=== PATIENT | female | born 1945 | race African-American/Black ===

== ENCOUNTER 2017-05-10 16:07 | Inpatient (IN) ==
[2017-05-10] MEDS ORDERED: LACTATED RINGERS 500 ML IV STA (16:16)
[2017-05-10] MEDS ORDERED: ceFAZolin 1,000 MG VIAL ONE (16:19)
[2017-05-10] MEDS ORDERED: DIPH/TET/ACEL PERT BOOSTER VACCINE 0.5 ML VIAL IM ONE (16:20)
[2017-05-10 16:38] LABS: Basophils # 0.1 10*3/uL (0.0-0.2); Basophils % 0.4 % (0.0-0.8); Eosinophils % 0.1 % (0.00-10.9); Hematocrit 38.9 VOL% (35.7-47.0); Hemoglobin 12.6 GM/DL (12.0-16.0); Immature Granulocytes % 1.3 %; Immature Granulocytes Absolute 0.15 #; Lymphocytes # 2.3 10*3/uL (1.4-4.0); Lymphocytes % 20.7 % (21.3-54.2); Mean Corpuscular HGB Conc 32.4 GM/DL (32-36); Mean Corpuscular Hemoglobin 30 PG (27-34); Mean Corpuscular Volume 91.1 FL (87-102); Mean Platelet Volume 11.3 FL (9.6-12.0); Monocytes # 0.5 10*3/uL (0.11-0.8); Monocytes % 4.5 % (1.7-12.7); Neutrophils # 8.1 10*3/uL (1.4-7.4); Platelet Count 301 T/CUMM (130-400); Red Blood Count 4.27 MC/CUMM (3.8-5.5); Red Cell Distribution Width 13.1 % (9.3-17.3); White Blood Count 11.1 T/CUMM (4-12)
[2017-05-10 16:43] LABS: INR 0.9; Partial Thromboplastin Time < 21.0 SECS (0-40)
[2017-05-10 16:51] LABS: Lactic Acid 3.6 MMOL/L (0.4-2.0)
[2017-05-10 16:54] LABS: Alanine Aminotransferase 114 U/L (13-56); Alkaline Phosphatase 76 U/L (45-117); Amylase 87 U/L (25-115); Aspartate Amino Transferase 151 U/L (0-37); Bilirubin,Total < 0.39 MG/DL (0.2-1.0); Blood Urea Nitrogen 24 MG/DL (7-18); Calcium 9.2 MG/DL (8.5-10.1); Glucose 436 MG/DL (74-106); Osmolality,Calculated 292.1 MOS/KG (273-304); Sodium 135 MMOL/L (136-145); Total Protein 8.1 G/DL (6.4-8.3)
[2017-05-10] MEDS ORDERED: INSULIN REGULAR 100 UNIT/ML SUBCUT STA (16:59)
[2017-05-10] MEDS ORDERED: INSULIN REGULAR 100 UNIT/ML ONE (17:27)
[2017-05-10] MEDS ORDERED: LIDOCAINE 1%/EPI INJ 20 ML VIAL ONE (17:31)
[2017-05-10] MEDS ORDERED: ONDANSETRON 4 MG/2 ML VIAL ONE ×2 (17:47→17:48)
[2017-05-10] MEDS: ONDANSETRON 4 MG/2 ML VIAL IV PRN (17:50)
[2017-05-10] MEDS ORDERED: ALBUTEROL/IPRATROPIUM 3 ML NEB RESP TX PRN (18:07)
[2017-05-10] MEDS ORDERED: ACETAMINOPHEN 325 MG TABLET PO PRN (18:07)
[2017-05-10 18:37] LABS: Apearance,Urine CLEAR (Clear); Bacteria,Urine Occasional /HPF (Few); Bilirubin,Urine Negative (Negative); Blood, Urine Negative (Negative); Glucose,Urine (UA) >=500 mg/dL (Negative); Ketones,Urine 5 mg/dL (Negative); Nitrite,Urine Negative (Negative); Protein,Urine Negative; Squamous Epithelial Cell,Urine Occasional /HPF (0-10); Urine Color Yellow (Yellow); Urine Specific Gravity 1.032 (1.001-1.035); Urine Urobilinogen < 2.0 EU/DL (0.2-1.0); WBC,Urine 1 /HPF (0-6)
[2017-05-10 18:59] LABS: Barbiturates Screen,Urine Negative (Negative); Benzodiazepines Screen,Urine Negative (Negative); Cannabinoid Screen,Urine Negative (Negative); Opiate Screen,Urine Negative (Negative); Phencyclidine Screen,Urine Negative (Negative)
[2017-05-10] MEDS: MORPHINE 4 MG/1 ML VIAL IV PRN (19:14)
[2017-05-10] MEDS ORDERED: MORPHINE 4 MG/1 ML VIAL ONE (19:14)
[2017-05-10] MEDS: LACTATED RINGERS 1,000 ML IV SCH (20:34)
[2017-05-10] MEDS: DOCUSATE SODIUM 100 MG CAPSULE PO SCH (20:36)
[2017-05-10 21:12] LABS: Lactic Acid 5.3 MMOL/L (0.4-2.0)
[2017-05-11] MEDS: MORPHINE 4 MG/1 ML VIAL IV PRN ×4 (00:16→19:10)
[2017-05-11 01:11] LABS: Basophils # 0.1 10*3/uL (0.0-0.2); Basophils % 0.3 % (0.0-0.8); Eosinophils % 0.1 % (0.00-10.9); Hematocrit 29.3 VOL% (35.7-47.0); Hemoglobin 9.7 GM/DL (12.0-16.0); Immature Granulocytes % 0.7 %; Immature Granulocytes Absolute 0.11 #; Lymphocytes # 2.1 10*3/uL (1.4-4.0); Lymphocytes % 12.6 % (21.3-54.2); Mean Corpuscular HGB Conc 33.1 GM/DL (32-36); Mean Corpuscular Hemoglobin 30 PG (27-34); Mean Corpuscular Volume 90.4 FL (87-102); Mean Platelet Volume 10.6 FL (9.6-12.0); Monocytes # 1.7 10*3/uL (0.11-0.8); Neutrophils # 12.6 10*3/uL (1.4-7.4); Neutrophils % 76.3 % (38.7-73.9); Platelet Count 256 T/CUMM (130-400); Red Blood Count 3.24 MC/CUMM (3.8-5.5); Red Cell Distribution Width 13.2 % (9.3-17.3); White Blood Count 16.5 T/CUMM (4-12)
[2017-05-11 01:28] LABS: Calcium 8.5 MG/DL (8.5-10.1); Osmolality,Calculated 292.5 MOS/KG (273-304); Potassium 4.4 MMOL/L (3.5-5.1)
[2017-05-11 01:31] LABS: Lactic Acid 2.5 MMOL/L (0.4-2.0)
[2017-05-11] MEDS: LACTATED RINGERS 1,000 ML IV SCH ×4 (03:46→22:21)
[2017-05-11] MEDS: INSULIN REGULAR 100 UNIT/ML SUBCUT SCH ×2 (04:11→09:03)
[2017-05-11 07:08] LABS: Lactic Acid 3.5 MMOL/L (0.4-2.0)
[2017-05-11] MEDS ORDERED: LIDOCAINE 1%/EPI INJ 20 ML VIAL ONE (07:40)
[2017-05-11] MEDS ORDERED: PROPOFOL 200 MG/20 ML VIAL IV ONE (08:44)
[2017-05-11] MEDS ORDERED: SEVOFLURANE 1 UNIT/15 MINUTE INH ONE (08:44)
[2017-05-11] MEDS ORDERED: fentaNYL 100 MCG/2 ML VIAL ONE (08:44)
[2017-05-11] MEDS ORDERED: PHENYLEPHRINE 1 MG/10 ML SYRINGE IV ONE (08:45)
[2017-05-11] MEDS ORDERED: MIDAZOLAM 2 MG/2 ML VIAL ONE (08:45)
[2017-05-11] MEDS ORDERED: HYDROCORTISONE 100 MG VIAL ONE (08:45)
[2017-05-11] MEDS ORDERED: ONDANSETRON 4 MG/2 ML VIAL ONE (08:45)
[2017-05-11] MEDS ORDERED: INSULIN REGULAR 100 UNIT/ML ONE (09:02)
[2017-05-11] MEDS: DOCUSATE SODIUM 100 MG CAPSULE PO SCH ×2 (10:21→20:46)
[2017-05-11] MEDS: PANTOPRAZOLE 40 MG TABLET PO SCH (10:21)
[2017-05-11] MEDS ORDERED: GLUCAGON 1 MG VIAL IM PRN (10:47)
[2017-05-11] MEDS ORDERED: DEXTROSE 50% 25 GM/50 ML VIAL IV PRN (10:47)
[2017-05-11] MEDS: INSULIN LISPRO 100 UNIT/ML SUBCUT SCH ×3 (12:25→20:48)
[2017-05-11 15:17] LABS: Hematocrit 26.3 VOL% (35.7-47.0); Hemoglobin 8.7 GM/DL (12.0-16.0)
[2017-05-11] MEDS: PREGABALIN 100 MG CAPSULE PO SCH (20:46)
[2017-05-11] MEDS: DILTIAZEM CD 240 MG CAPSULE PO SCH (20:46)
[2017-05-11] MEDS: SIMVASTATIN 20 MG TABLET PO SCH (20:46)
[2017-05-11] MEDS: AMITRIPTYLINE 25 MG TABLET PO SCH (20:47)
[2017-05-12] MEDS: LACTATED RINGERS 1,000 ML IV SCH ×5 (01:09→21:36)
[2017-05-12] MEDS: MORPHINE 4 MG/1 ML VIAL IV PRN (04:38)
[2017-05-12 05:29] LABS: Basophils % 0.3 % (0.0-0.8); Eosinophils # 0.1 10*3/uL (0.0-0.87); Eosinophils % 0.5 % (0.00-10.9); Hematocrit 24.1 VOL% (35.7-47.0); Hemoglobin 7.5 GM/DL (12.0-16.0); Immature Granulocytes % 0.5 %; Immature Granulocytes Absolute 0.05 #; Lymphocytes # 2.4 10*3/uL (1.4-4.0); Lymphocytes % 23.6 % (21.3-54.2); Mean Corpuscular HGB Conc 31.1 GM/DL (32-36); Mean Corpuscular Hemoglobin 29 PG (27-34); Mean Corpuscular Volume 92.3 FL (87-102); Mean Platelet Volume 11.2 FL (9.6-12.0); Monocytes # 1.1 10*3/uL (0.11-0.8); Neutrophils # 6.6 10*3/uL (1.4-7.4); Neutrophils % 64.1 % (38.7-73.9); Platelet Count 182 T/CUMM (130-400); Red Blood Count 2.61 MC/CUMM (3.8-5.5); Red Cell Distribution Width 13.2 % (9.3-17.3); White Blood Count 10.3 T/CUMM (4-12)
[2017-05-12 05:58] LABS: Osmolality,Calculated 279.8 MOS/KG (273-304); Potassium 3.8 MMOL/L (3.5-5.1)
[2017-05-12 05:59] LABS: Lactic Acid 1.2 MMOL/L (0.4-2.0)
[2017-05-12 06:04] LABS: Alanine Aminotransferase 48 U/L (13-56); Albumin 2.6 G/DL (3.4-5.0); Alkaline Phosphatase 51 U/L (45-117); Aspartate Amino Transferase 26 U/L (0-37); Bilirubin,Direct < 0.100 MG/DL (0.0-0.20); Bilirubin,Indirect 1.2 MG/DL (0.0-1.0); Total Protein 5.3 G/DL (6.4-8.3)
[2017-05-12 06:16] LABS: Risk Ratio 2.4; VLDL CHOLESTEROL 31.6 MG/DL
[2017-05-12] MEDS ORDERED: CHLORTHALIDONE 25 MG TABLET PO SCH (09:00)
[2017-05-12] MEDS ORDERED: SODIUM CHLORIDE 0.9% 1,000 ML IV PRN (09:37)
[2017-05-12] MEDS: ONDANSETRON 4 MG/2 ML VIAL IV PRN (10:03)
[2017-05-12] MEDS: INSULIN LISPRO 100 UNIT/ML SUBCUT SCH ×4 (10:06→20:47)
[2017-05-12] MEDS: KETOROLAC 15 MG/1 ML VIAL IV PRN ×2 (10:10→21:42)
[2017-05-12] MEDS: DOCUSATE SODIUM 100 MG CAPSULE PO SCH ×2 (10:14→20:45)
[2017-05-12] MEDS: predniSONE 10 MG TABLET PO SCH (10:14)
[2017-05-12] MEDS: DILTIAZEM CD 240 MG CAPSULE PO SCH ×2 (10:14→20:46)
[2017-05-12] MEDS: PREGABALIN 100 MG CAPSULE PO SCH ×2 (10:15→20:46)
[2017-05-12] MEDS: PANTOPRAZOLE 40 MG TABLET PO SCH (10:16)
[2017-05-12] MEDS ORDERED: ceFAZolin 1,000 MG VIAL ONE (15:53)
[2017-05-12] MEDS ORDERED: fentaNYL 100 MCG/2 ML VIAL ONE (16:49)
[2017-05-12] MEDS ORDERED: SEVOFLURANE 1 UNIT/15 MINUTE INH ONE (16:49)
[2017-05-12] MEDS ORDERED: PROPOFOL 200 MG/20 ML VIAL IV ONE (16:49)
[2017-05-12] MEDS ORDERED: MIDAZOLAM 2 MG/2 ML VIAL ONE (16:50)
[2017-05-12] MEDS ORDERED: HYDROCORTISONE 100 MG VIAL ONE (16:50)
[2017-05-12] MEDS ORDERED: ONDANSETRON 4 MG/2 ML VIAL ONE (16:50)
[2017-05-12] MEDS: SIMVASTATIN 20 MG TABLET PO SCH (20:47)
[2017-05-12] MEDS: AMITRIPTYLINE 25 MG TABLET PO SCH (20:52)
[2017-05-12 22:16] LABS: Hematocrit 28.8 VOL% (35.7-47.0); Hemoglobin 9.7 GM/DL (12.0-16.0)
[2017-05-13] MEDS: LACTATED RINGERS 1,000 ML IV SCH ×3 (05:10→12:54)
[2017-05-13 05:35] LABS: Basophils % 0.2 % (0.0-0.8); Eosinophils % 0.3 % (0.00-10.9); Hematocrit 26.8 VOL% (35.7-47.0); Hemoglobin 9.2 GM/DL (12.0-16.0); Immature Granulocytes % 0.6 %; Immature Granulocytes Absolute 0.06 #; Lymphocytes # 2.9 10*3/uL (1.4-4.0); Lymphocytes % 27.7 % (21.3-54.2); Mean Corpuscular HGB Conc 34.3 GM/DL (32-36); Mean Corpuscular Hemoglobin 30 PG (27-34); Mean Corpuscular Volume 88.2 FL (87-102); Mean Platelet Volume 11.3 FL (9.6-12.0); Monocytes # 1.3 10*3/uL (0.11-0.8); Monocytes % 12.4 % (1.7-12.7); NRBC # 0.02 10*3/uL; Neutrophils # 6.1 10*3/uL (1.4-7.4); Neutrophils % 58.8 % (38.7-73.9); Platelet Count 176 T/CUMM (130-400); Red Blood Count 3.04 MC/CUMM (3.8-5.5); Red Cell Distribution Width 13.1 % (9.3-17.3); White Blood Count 10.3 T/CUMM (4-12)
[2017-05-13 05:59] LABS: Alanine Aminotransferase 31 U/L (13-56); Albumin 2.4 G/DL (3.4-5.0); Alkaline Phosphatase 58 U/L (45-117); Aspartate Amino Transferase 28 U/L (0-37); Bilirubin,Direct < 0.100 MG/DL (0.0-0.20); Bilirubin,Indirect 0.3 MG/DL (0.0-1.0); Total Protein 5.5 G/DL (6.4-8.3)
[2017-05-13] MEDS: INSULIN LISPRO 100 UNIT/ML SUBCUT SCH ×4 (08:00→21:00)
[2017-05-13] MEDS: DILTIAZEM CD 240 MG CAPSULE PO SCH ×2 (08:02→20:59)
[2017-05-13] MEDS: PREGABALIN 100 MG CAPSULE PO SCH ×2 (08:02→21:00)
[2017-05-13] MEDS: DOCUSATE SODIUM 100 MG CAPSULE PO SCH ×2 (08:02→20:59)
[2017-05-13] MEDS: PANTOPRAZOLE 40 MG TABLET PO SCH (08:02)
[2017-05-13] MEDS: predniSONE 10 MG TABLET PO SCH (08:02)
[2017-05-13] MEDS: KETOROLAC 15 MG/1 ML VIAL IV PRN (08:12)
[2017-05-13] MEDS: AMITRIPTYLINE 25 MG TABLET PO SCH (20:59)
[2017-05-13] MEDS: SIMVASTATIN 20 MG TABLET PO SCH (20:59)
[2017-05-13] MEDS ORDERED: INSULIN GLARGINE 100 UNIT/ML SUBCUT SCH (21:00)
[2017-05-13] MEDS: MORPHINE 4 MG/1 ML VIAL IV PRN (22:21)
[2017-05-14] MEDS: LACTATED RINGERS 1,000 ML IV SCH ×2 (01:41→04:25)
[2017-05-14 05:27] LABS: Basophils % 0.4 % (0.0-0.8); Eosinophils # 0.2 10*3/uL (0.0-0.87); Eosinophils % 1.5 % (0.00-10.9); Hematocrit 27.7 VOL% (35.7-47.0); Hemoglobin 9.1 GM/DL (12.0-16.0); Immature Granulocytes % 0.9 %; Immature Granulocytes Absolute 0.09 #; Lymphocytes % 29.6 % (21.3-54.2); Mean Corpuscular HGB Conc 32.9 GM/DL (32-36); Mean Corpuscular Hemoglobin 30 PG (27-34); Monocytes # 1.2 10*3/uL (0.11-0.8); Monocytes % 12.5 % (1.7-12.7); NRBC # 0.03 10*3/uL; Neutrophils # 5.5 10*3/uL (1.4-7.4); Neutrophils % 55.1 % (38.7-73.9); Platelet Count 218 T/CUMM (130-400); Red Blood Count 3.01 MC/CUMM (3.8-5.5)
[2017-05-14] MEDS: MORPHINE 4 MG/1 ML VIAL IV PRN (06:18)
[2017-05-14] MEDS: INSULIN LISPRO 100 UNIT/ML SUBCUT SCH ×4 (08:52→21:06)
[2017-05-14] MEDS: DILTIAZEM CD 240 MG CAPSULE PO SCH ×2 (08:53→21:05)
[2017-05-14] MEDS: predniSONE 10 MG TABLET PO SCH (08:55)
[2017-05-14] MEDS: DOCUSATE SODIUM 100 MG CAPSULE PO SCH ×2 (08:56→21:06)
[2017-05-14] MEDS: PREGABALIN 100 MG CAPSULE PO SCH ×2 (08:56→21:06)
[2017-05-14] MEDS: PANTOPRAZOLE 40 MG TABLET PO SCH (08:57)
[2017-05-14] MEDS: KETOROLAC 15 MG/1 ML VIAL IV PRN (08:58)
[2017-05-14] MEDS: POLYETHYLENE GLYCOL POWDER 17 GM PACK PO SCH (11:15)
[2017-05-14] MEDS: ENOXAPARIN 40 MG/0.4 ML SYRINGE SUBCUT SCH (12:48)
[2017-05-14] MEDS: ALBUTEROL/IPRATROPIUM 3 ML NEB RESP TX SCH ×2 (14:46→19:56)
[2017-05-14] MEDS: AMITRIPTYLINE 25 MG TABLET PO SCH (21:05)
[2017-05-14] MEDS: metFORMIN 500 MG TABLET PO SCH (21:06)
[2017-05-14] MEDS: SIMVASTATIN 20 MG TABLET PO SCH (21:06)
[2017-05-14] MEDS: glipiZIDE 10 MG TABLET PO SCH (21:06)
[2017-05-14] MEDS ORDERED: ZALEPLON 5 MG CAPSULE PO ONE (22:24)
[2017-05-15] MEDS: ALBUTEROL/IPRATROPIUM 3 ML NEB RESP TX SCH ×4 (00:18→20:02)
[2017-05-15 06:17] LABS: Basophils # 0.1 10*3/uL (0.0-0.2); Basophils % 0.6 % (0.0-0.8); Eosinophils # 0.2 10*3/uL (0.0-0.87); Eosinophils % 2.2 % (0.00-10.9); Hemoglobin 9.4 GM/DL (12.0-16.0); Immature Granulocytes % 1.1 %; Immature Granulocytes Absolute 0.11 #; Lymphocytes % 29.4 % (21.3-54.2); Mean Corpuscular HGB Conc 33.6 GM/DL (32-36); Mean Corpuscular Hemoglobin 30 PG (27-34); Mean Corpuscular Volume 90.6 FL (87-102); Mean Platelet Volume 10.8 FL (9.6-12.0); Monocytes # 1.3 10*3/uL (0.11-0.8); Monocytes % 13.1 % (1.7-12.7); NRBC # 0.04 10*3/uL; Neutrophils # 5.4 10*3/uL (1.4-7.4); Neutrophils % 53.6 % (38.7-73.9); Platelet Count 249 T/CUMM (130-400); Red Blood Count 3.09 MC/CUMM (3.8-5.5); Red Cell Distribution Width 12.9 % (9.3-17.3); White Blood Count 10.1 T/CUMM (4-12)
[2017-05-15 06:54] LABS: Calcium 8.1 MG/DL (8.5-10.1); Osmolality,Calculated 284.3 MOS/KG (273-304); Potassium 3.7 MMOL/L (3.5-5.1)
[2017-05-15] MEDS: KETOROLAC 15 MG/1 ML VIAL IV PRN ×3 (07:37→21:18)
[2017-05-15] MEDS: INSULIN LISPRO 100 UNIT/ML SUBCUT SCH ×4 (07:59→21:17)
[2017-05-15] MEDS: DILTIAZEM CD 240 MG CAPSULE PO SCH ×2 (09:33→21:15)
[2017-05-15] MEDS: metFORMIN 500 MG TABLET PO SCH ×2 (09:34→21:17)
[2017-05-15] MEDS: DOCUSATE SODIUM 100 MG CAPSULE PO SCH ×2 (09:34→21:17)
[2017-05-15] MEDS: glipiZIDE 10 MG TABLET PO SCH ×2 (09:35→21:19)
[2017-05-15] MEDS: PANTOPRAZOLE 40 MG TABLET PO SCH (09:35)
[2017-05-15] MEDS: predniSONE 10 MG TABLET PO SCH (09:35)
[2017-05-15] MEDS: PREGABALIN 100 MG CAPSULE PO SCH ×2 (09:35→21:16)
[2017-05-15] MEDS: POLYETHYLENE GLYCOL POWDER 17 GM PACK PO SCH (09:43)
[2017-05-15] MEDS: INSULIN GLARGINE 100 UNIT/ML SUBCUT SCH (11:57)
[2017-05-15] MEDS: ENOXAPARIN 40 MG/0.4 ML SYRINGE SUBCUT SCH (11:58)
[2017-05-15] MEDS ORDERED: BISACODYL 10 MG SUPP RECTAL ONE (17:33)
[2017-05-15] MEDS ORDERED: TAMSULOSIN 0.4 MG CAPSULE PO ONE (17:33)
[2017-05-15 18:58] LABS: Apearance,Urine CLEAR (Clear); Bacteria,Urine Occasional /HPF (Few); Bilirubin,Urine Negative (Negative); Blood, Urine Negative (Negative); Glucose,Urine (UA) >=500 mg/dL (Negative); Ketones,Urine Negative (Negative); Mucus,Urine Occasional /LPF (Occasional); Nitrite,Urine Negative (Negative); Protein,Urine Negative; RBC,Urine 2 /HPF (0-4); Squamous Epithelial Cell,Urine Occasional /HPF (0-10); Urine Color Yellow (Yellow); Urine Specific Gravity 1.018 (1.001-1.035); Urine Urobilinogen < 2.0 EU/DL (0.2-1.0); WBC,Urine 4 /HPF (0-6)
[2017-05-15] MEDS ORDERED: diphenhydrAMINE 50 MG/1 ML VIAL IV PRN (21:08)
[2017-05-15] MEDS: AMITRIPTYLINE 25 MG TABLET PO SCH (21:16)
[2017-05-15] MEDS: SIMVASTATIN 20 MG TABLET PO SCH (21:16)
[2017-05-16] MEDS: ALBUTEROL/IPRATROPIUM 3 ML NEB RESP TX SCH ×4 (01:15→19:45)
[2017-05-16] MEDS: INSULIN LISPRO 100 UNIT/ML SUBCUT SCH ×4 (08:46→20:53)
[2017-05-16] MEDS: POLYETHYLENE GLYCOL POWDER 17 GM PACK PO SCH (10:18)
[2017-05-16] MEDS: glipiZIDE 10 MG TABLET PO SCH ×2 (10:18→20:52)
[2017-05-16] MEDS: metFORMIN 500 MG TABLET PO SCH ×2 (10:19→20:52)
[2017-05-16] MEDS: DILTIAZEM CD 240 MG CAPSULE PO SCH ×2 (10:19→20:52)
[2017-05-16] MEDS: PANTOPRAZOLE 40 MG TABLET PO SCH (10:19)
[2017-05-16] MEDS: predniSONE 10 MG TABLET PO SCH (10:19)
[2017-05-16] MEDS: PREGABALIN 100 MG CAPSULE PO SCH ×2 (10:19→20:52)
[2017-05-16] MEDS: DOCUSATE SODIUM 100 MG CAPSULE PO SCH ×2 (10:19→20:52)
[2017-05-16] MEDS: INSULIN GLARGINE 100 UNIT/ML SUBCUT SCH (10:20)
[2017-05-16] MEDS: ENOXAPARIN 40 MG/0.4 ML SYRINGE SUBCUT SCH (15:28)
[2017-05-16] MEDS: AMITRIPTYLINE 25 MG TABLET PO SCH (20:52)
[2017-05-16] MEDS: ZALEPLON 5 MG CAPSULE PO PRN (20:52)
[2017-05-16] MEDS: SIMVASTATIN 20 MG TABLET PO SCH (20:52)
[2017-05-16] MEDS: KETOROLAC 15 MG/1 ML VIAL IV PRN (20:53)
[2017-05-17] MEDS: ALBUTEROL/IPRATROPIUM 3 ML NEB RESP TX SCH ×4 (00:19→19:17)
[2017-05-17] MEDS: INSULIN LISPRO 100 UNIT/ML SUBCUT SCH ×4 (07:56→20:53)
[2017-05-17] MEDS: INSULIN GLARGINE 100 UNIT/ML SUBCUT SCH (08:27)
[2017-05-17] MEDS: PANTOPRAZOLE 40 MG TABLET PO SCH (08:27)
[2017-05-17] MEDS: DOCUSATE SODIUM 100 MG CAPSULE PO SCH ×2 (08:27→20:51)
[2017-05-17] MEDS: metFORMIN 500 MG TABLET PO SCH ×2 (08:27→20:52)
[2017-05-17] MEDS: PREGABALIN 100 MG CAPSULE PO SCH ×2 (08:27→20:51)
[2017-05-17] MEDS: glipiZIDE 10 MG TABLET PO SCH ×3 (08:27→20:54)
[2017-05-17] MEDS: predniSONE 10 MG TABLET PO SCH (08:27)
[2017-05-17] MEDS: DILTIAZEM CD 240 MG CAPSULE PO SCH ×2 (08:27→20:51)
[2017-05-17] MEDS: POLYETHYLENE GLYCOL POWDER 17 GM PACK PO SCH (08:28)
[2017-05-17] MEDS: KETOROLAC 15 MG/1 ML VIAL IV PRN (08:38)
[2017-05-17] MEDS: ENOXAPARIN 40 MG/0.4 ML SYRINGE SUBCUT SCH (12:30)
[2017-05-17] MEDS ORDERED: MAGNESIUM HYDROXIDE SUSP 30 ML UDCUP PO PRN (19:05)
[2017-05-17] MEDS: TAMSULOSIN 0.4 MG CAPSULE PO SCH (20:51)
[2017-05-17] MEDS: AMITRIPTYLINE 25 MG TABLET PO SCH (20:51)
[2017-05-17] MEDS: SIMVASTATIN 20 MG TABLET PO SCH (20:52)
[2017-05-17] MEDS: ZALEPLON 5 MG CAPSULE PO PRN (22:38)
[2017-05-18] MEDS: ALBUTEROL/IPRATROPIUM 3 ML NEB RESP TX SCH ×4 (01:43→19:00)
[2017-05-18] MEDS: INSULIN LISPRO 100 UNIT/ML SUBCUT SCH ×4 (10:18→21:03)
[2017-05-18] MEDS: DILTIAZEM CD 240 MG CAPSULE PO SCH ×2 (10:32→21:02)
[2017-05-18] MEDS: predniSONE 10 MG TABLET PO SCH (10:33)
[2017-05-18] MEDS: PREGABALIN 100 MG CAPSULE PO SCH ×2 (10:33→20:45)
[2017-05-18] MEDS: metFORMIN 500 MG TABLET PO SCH ×2 (10:33→20:44)
[2017-05-18] MEDS: PANTOPRAZOLE 40 MG TABLET PO SCH (10:33)
[2017-05-18] MEDS: DOCUSATE SODIUM 100 MG CAPSULE PO SCH ×2 (10:33→20:45)
[2017-05-18] MEDS: glipiZIDE 10 MG TABLET PO SCH ×2 (10:33→20:45)
[2017-05-18] MEDS: POLYETHYLENE GLYCOL POWDER 17 GM PACK PO SCH (10:34)
[2017-05-18] MEDS: ENOXAPARIN 40 MG/0.4 ML SYRINGE SUBCUT SCH (10:44)
[2017-05-18] MEDS: INSULIN GLARGINE 100 UNIT/ML SUBCUT SCH (10:47)
[2017-05-18] MEDS ORDERED: SODIUM PHOSPHATE ENEMA 133 ML BOTTLE RECTAL ONE (14:24)
[2017-05-18] MEDS: AMITRIPTYLINE 25 MG TABLET PO SCH (20:44)
[2017-05-18] MEDS: TAMSULOSIN 0.4 MG CAPSULE PO SCH (20:44)
[2017-05-18] MEDS: SIMVASTATIN 20 MG TABLET PO SCH (20:44)
[2017-05-18] MEDS: ZALEPLON 5 MG CAPSULE PO PRN (20:45)
[2017-05-19] MEDS: ALBUTEROL/IPRATROPIUM 3 ML NEB RESP TX SCH ×2 (00:49→08:22)
[2017-05-19] MEDS: INSULIN LISPRO 100 UNIT/ML SUBCUT SCH ×2 (09:37→12:23)
[2017-05-19] MEDS: DILTIAZEM CD 240 MG CAPSULE PO SCH (09:38)
[2017-05-19] MEDS: glipiZIDE 10 MG TABLET PO SCH (09:38)
[2017-05-19] MEDS: DOCUSATE SODIUM 100 MG CAPSULE PO SCH (09:38)
[2017-05-19] MEDS: predniSONE 10 MG TABLET PO SCH (09:39)
[2017-05-19] MEDS: INSULIN GLARGINE 100 UNIT/ML SUBCUT SCH (09:40)
[2017-05-19] MEDS: POLYETHYLENE GLYCOL POWDER 17 GM PACK PO SCH ×2 (09:40→12:09)
[2017-05-19] MEDS: PANTOPRAZOLE 40 MG TABLET PO SCH (09:40)
[2017-05-19] MEDS: metFORMIN 500 MG TABLET PO SCH (09:40)
[2017-05-19 11:55] VITALS: BP 141/74
[2017-05-19] MEDS: ENOXAPARIN 40 MG/0.4 ML SYRINGE SUBCUT SCH (12:23)
== END 2017-05-19 13:20 | DRG 493 ==
LOC: EDBD → EDUNIT# → N.ED 16:07 → N.EDINP 18:07 → N.ICU 19:28 → N.3E 05-11 08:25
PROVIDERS: ADMIT Surgery; ATTEND Surgery